=== PATIENT | female | born 1950 | race Caucasian/White ===

== ENCOUNTER 2017-09-04 12:44 | Emergency (ER) | payer MEDICARE ==
[~2017-09-04] VITALS: Ht 172.7 cm; Wt 104.3 kg
== END 2017-09-04 16:46 | disposition left against medical advice (07) ==
LOC: ER 12:44
DX: R09.89 Other specified symptoms and signs involving the circulatory and respiratory systems (principal)

== ENCOUNTER 2020-04-26 20:57 | Inpatient (IN) | payer MEDICARE, OTHER ==
[~2020-04-26] VITALS: Ht 172.7 cm; Wt 98.2 kg
--- NOTE | 2020-04-26 21:12 | NUR ---
CODE STEMI ACTIVATED AT THIS TIME.
--- NOTE | 2020-04-26 21:20 | NUR ---
PATIENT IN ROOM, CONNECTED TO [employer] AND ALL APPROPIATE MONITORING EQUIPMENT, 02 PLACED ON PATIENT, GROIN AREAS BEING SHAVED AT THIS MOMENT
[2020-04-26] MEDS ORDERED: ASPIRIN 81 MG CHEW TAB ONE (21:21)
--- OUTSIDE RECORDS SUMMARY | 2020-04-26 21:22 | XMS REPORT | Clinical Summary ---
Author Author [facility] Organization [facility] Address Unknown Phone Unavailable Care Team Providers Care Tafe Registrar Name Role Phone PCP Unavailable Allergies Comments Active Allergy Reactions Severity Noted Date Propoxyphene 07/31/2013 N-Acetaminophen Penicillins Rash 07/31/2013 Oxycodone-Acetaminophen Hallucination 03/10/2014 s Oxycodone Hallucination Medium 09/26/2013 [facility] Medications End Date Status Medication Sig Dispensed Refills Start Date Active blood glucose meter Use as 1 Kit 0 (PRECISION XTRA directed.. 4 GLUCOMETER)Indications: DM (diabetes mellitus) Active lancets 28 Use 2 times a 1 Box 3 gaugeIndications: DM day 4 (diabetes mellitus) Active aspirin (ASPIRIN) 81 mg Chew and 90 tablet 4 chewable swallow 1 4 tabletIndications: CAD tablet by (Coronary Artery Disease) mouth daily. of Artery Bypass Graft Active blood glucose (PRECISION Patient is on 100 Each 3 XTRA TEST STRIPS) test insulin 3 4 stripsIndications: DM times daily, (diabetes mellitus) need to check blood sugar before each meal. Active ammonium lactate (AL12) Apply to 225 g 3 12 % lotionIndications: affected area 4 Xerosis cutis 2 times daily. Active blood glucose Use as 1 Kit 0 meterIndications: DM directed.. 5 (diabetes mellitus), Unspecified hypothyroidism Active blood glucose test Check blood 6 Box 5 01 stripsIndications: sugar 3 times 5 Uncontrolled diabetes per day. mellitus Active INSULIN SYRINGE 1mL Use to inject 300 Each 5 07/20 30GX5/16" medication 2 5 syringe-needleIndications times daily. : Uncontrolled diabetes Use a new mellitus syringe each time. Active clotrimazole (LOTRIMIN) 1 Apply 1 to 2 30 mL 3 % external drops to 5 solutionIndications: affected Dermatophytosis of nail nails 2 times a day. Use a nail file to keep nails thin. Active traMADol (ULTRAM) 50 mg Take 1 tablet 20 tablet 0 tabletIndications: Fall by mouth 5 in (into) shower or empty every 6 hours bathtub, subsequent as needed for encounter Pain. Active albuterol (PROVENTIL HFA) Inhale 2 6.7 g 1 90 mcg/actuation inhaler Puffs by 6 mouth 4 times daily as needed for Wheezing. Active BRILINTA 90 mg Take 1 tablet 180 tablet 3 tabletIndications: CAD by mouth 2 6 S/P percutaneous coronary times daily. angioplasty Active metFORMIN (GLUCOPHAGE) Take 2 360 tablet 5 500 mg tabletIndications: tablets by 6 Other specified mouth 2 times hypothyroidism daily (with meals). Active ketoconazole (NIZORAL) 2 Apply to 30 g 0 0 % topical affected area 6 creamIndications: Moni daily. infection Active blood glucose Use as 1 Kit 0 meterIndications: directed.. 6 Diabetes mellitus, insulin dependent (IDDM), controlled Active blood glucose test 3 times 100 Each 3 01 stripsIndications: daily. 6 Diabetes mellitus, insulin dependent (IDDM), controlled Active nitroGLYCERIN (NITROSTAT) Dissolve 1 100 tablet 1 0.4 mg sublingual tablet under 6 tabletIndications: the tongue Pericardial pain, every 5 Uncontrolled diabetes minutes as mellitus needed, up to 3 times. If chest pain persists, call 911. Active FLUoxetine (PROZAC) 20 mg Take 1 90 capsule 1 capsuleIndications: capsule by 6 Neuropathy mouth daily. Active insulin NPH (NOVOLIN N, Inject 20 40 mL 1 HUMULIN N) 100 unit/mL Units under 6 injectionIndications: the skin 2 Diabetes mellitus type 2, times daily insulin dependent (before meals). Active INSULIN SYRINGE 0.5mL Use to inject 1 Box 1 30GX5/16" (MONOJECT medication 2 6 ULTRACOMFORT INSULIN SYR times daily. 0.5ML 30GX5/16") Use a new syringe-needleIndications syringe each : Diabetes mellitus type time. 2, insulin dependent Active insulin REGULAR (NOVOLIN Inject 8 20 mL 1 1 R, HUMULIN R) 100 unit/mL Units under 6 injectionIndications: the skin 3 Diabetes mellitus type 2, times daily. insulin dependent Active INSULIN SYRINGE 0.5mL Use to inject 1 Box 1 30GX5/16" (ULTRA COMFORT) medication 3 6 syringe-needleIndications times daily. : Diabetes mellitus type Use a new 2, insulin dependent syringe each time. Active loratadine (CLARITIN) 10 Take 1 tablet 90 tablet 1 mg tabletIndications: by mouth 6 Other acute sinusitis daily. Active mometasone (NASONEX) 50 2 Sprays by 17 g 1 mcg/actuation nasal each nostril 6 sprayIndications: Other route daily. acute sinusitis Active blood glucose Use as 1 Kit 0 meterIndications: directed.. 6 Diabetes mellitus type 2, insulin dependent Active lancetsIndications: by 100 Each 1 Diabetes mellitus type 2, MISCELLANEOUS 6 insulin dependent route 2 times daily. Active blood glucose test 2 times daily 100 Each 3 08/19 stripsIndications: to test blood 6 Diabetes mellitus type 2, sugar. insulin dependent Active gabapentin (NEURONTIN) Take 1 90 capsule 1 300 mg capsule by 6 capsuleIndications: mouth 3 times Precordial pain daily. Active isosorbide mononitrate Take 1 tablet 30 tablet 3 1 (IMDUR) 30 mg extended by mouth 6 release every tabletIndications: S/P morning. CABG x 4, CAD S/P percutaneous coronary angioplasty Active atorvastatin (LIPITOR) 80 Take 1 tablet 90 tablet 3 mg tabletIndications: CAD by mouth at 7 S/P percutaneous coronary bedtime angioplasty, Diabetes nightly. type 2, uncontrolled Active levothyroxine (SYNTHROID) Take 1 tablet 30 tablet 0 150 mcg by mouth 7 tabletIndications: every morning Acquired hypothyroidism (before breakfast) Pt needs appointment with PCP for future refills. Due for routine lab monitoring. Active metoprolol succinate Take 1 tablet 90 tablet 3 (TOPROL XL) 25 mg by mouth 7 extended release daily. tabletIndications: Essential hypertension Active Problems Problem Noted Date CHRISTOS (obstructive sleep apnea) 09/15/2016 Chest pain 09/14/2016 Precordial pain 03/08/2016 Left groin pain 02/17/2016 Type 2 diabetes mellitus, uncontrolled 02/17/2016 Hypotension due to drugs 02/17/2016 Hypothyroidism (acquired) 02/17/2016 Vitamin D deficiency 02/17/2016 Decreased pedal pulses 01/16/2016 Moni infection - axilla 01/16/2016 Diabetes mellitus, insulin dependent (IDDM), controll ed 01/16/2016 S/P CABG x 4 - 2004 ( long view) 01/14/2016 CAD S/P percutaneous coronary angioplasty 4 stents - last in 12/201401/14/2016 H/O carotid endarterectomy- 200401/14/2016 Iliac bone pain - left iliac crest lesion of 4 cm Fall in (into) shower or empty bathtub, subsequent en counter 08/11/2015 Skin lesion 08/26/2014 Angina effort 03/13/2014 Holter monitor, abnormal 10/14/2013 Abnormal stress test 10/14/2013 Carotid artery stenosis 10/14/2013 CAD (coronary artery disease) 08/06/2013 DM (diabetes mellitus) 08/06/2013 Hypothyroidism 08/06/2013 HTN (hypertension) 08/06/2013 HLD (hyperlipidemia) 08/06/2013 Neuropathy 08/06/2013 Depression 08/06/2013 Syncope 07/31/2013 Hypotension Lactic acidosis Poorly controlled diabetes mellitus No contraindication to deep vein thromb osis (DVT) prophylaxis Immunizations Name Administration Dates Next Due Influenza Vaccine 09/08/2014 Pneumoccoccal 04/03/2015 (Deferred: Patie nt Refused), 03/10/2014 (Deferred: Patient already had this imm unization) Family History Medical History Relation Name Comments Heart Brother Hypertension Father Heart Mother Hypertension Mother Relation Name Status Comments Brother Father Father Mother Mother Social History Date Tobacco Use Types Packs/Day Years Used Quit: 04/03/1998 Former Smoker Cigarettes 1 20 Smokeless Tobacco: Never Used Drinks/Week oz/Week Comments Alcohol Use No Sex Assigned at Date Recorded Not on file Industry Job Start Date Occupation Not on file Not on file Not on file Travel End Travel History Travel Start No recent travel history available. Last Filed Vital Signs Not on file Plan of Treatment Health Maintenance Due Date Last Done Comments Colorectal Cancer Scrn 2000 Annual (FIT/FOBT) Age 50 to 75 DM Foot Exam (Yearly) 09/05/2014 09/05/2013 Breast Cancer Scrn 09/25/2014 09/25/2013 (Yearly) IMM Pneumococcal Age 65 2015 and Up DM Retinal Exam (Yearly) 01/15/2017 01/16/2016, 09/05/2013, 09/05/2013 DM HGBA1C (Yearly) 08/19/2017 08/19/2016, 03/10/2016, 12/11/2015, Additional history exists DM Microalbumin Urine 08/19/2017 08/19/2016, Scrn (Yearly) 03/05/2015, 09/05/2013 CORONARY ARTERY DISEASE 09/15/2017 09/15/2016, AGE 18 AND UP 12/11/2015, 12/09/2014, Additional history exists Results Not on fileafter 04/26/2019 Insurance Type Payer Benefit Subscriber ID Effective Phone Address Plan / Dates Group [employer] [facility] xxxxxxxxxx 2016-P [phone] [address] [place] [address] Advance Directives Date Inactivated Comments Code Status Date Activated 09/16/2016 8:35 PM Full Code 09/14/2016 9:53 PM 03/10/2016 7:02 PM Full Code 03/09/2016 10:15 AM 03/14/2014 3:35 PM Full Code 03/13/2014 11:32 AM 03/13/2014 11:32 AM Full Code 03/13/2014 11:26 AM 03/13/2014 11:26 AM Full Code 03/13/2014 11:20 AM
--- OUTSIDE RECORDS SUMMARY | 2020-04-26 21:22 | XMS REPORT | Continuity of Care Document ---
Author Author [facility] t Organization [facility] Address [address] [place] [address] Phone Unavailable Care Team Providers Care Pillowcase Cleaner Name Role Phone Unavailable Unavailable Payers Payer Name Policy Type Policy Number Effective Date Expiration Date S ource Problems Condition Name Condition Details Condition Category Status Onset Date Resolution Date Last Treatment Date Treating Clinician Comments Source CHRISTOS (obstructive sleep apnea) CHRISTOS (obstructive sleep apnea) Disease Active 2016-09-15 00:00:00 [facility] Chest pain Chest pain Disease Active 2016-09-14 00:00:00 [facility] Precordial pain Precordial pain Disease Active 2016-03-08 00:00:00 [facility] Left groin pain Left groin pain Disease Active 2016-02-17 00:00:00 [facility] Type 2 diabetes mellitus, uncontrolled Type 2 diabetes nicolette noe, uncontrolled Disease Active 2016-02-17 00:00:00 [facility] Hypotension due to drugs Hypotension due to drugs Disease Acti ve 2016-02-17 00:00:00 [facility] Hypothyroidism (acquired) Hypothyroidism (acquired) Disease Ac tive 2016-02-17 00:00:00 [facility] Vitamin D deficiency Vitamin D deficiency Disease Active 00:00:00 [facility] Decreased pedal pulses Decreased pedal pulses Disease Active 2016-01-16 00:00:00 [facility] Moni infection - axilla Moni infection - axilla Disease Active 2016-01-16 00:00:00 [facility] Diabetes mellitus, insulin dependent (IDDM), controlle d Diabetes mellitus, insulin dependent (IDDM), controlled Disease Active 2016-01-16 00:00:00 [facility] S/P CABG x 4 - 2004 ( long view) S/P CABG x 4 - 2004 ( long view ) Disease Active 2016-01-14 00:00:00 [facility] CAD S/P percutaneous coronary angioplasty 4 stents - l ast in 12/2014 CAD S/P percutaneous coronary angioplasty 4 stents - last in 12/2014 Disease Active 2016-01-14 00:00:00 [place] H/O carotid endarterectomy- 2005 H/O carotid endarterectomy- 200 5 Disease Active 2016-01-14 00:00:00 [facility] Iliac bone pain - left iliac crest lesion of 4 cm López c bone pain - left iliac crest lesion of 4 cm Disease Active 2015-12-11 00:00:00 [facility] Fall in (into) shower or empty bathtub, subsequent enc ounter Fall in (into) shower or empty bathtub, subsequent encounter Disease Active 2015-08-11 00:00:00 [facility] Skin lesion Skin lesion Disease Active 2014-08-26 00:00:00 [facility] Angina effort Angina effort Disease Active 2014-03-13 00:00:00 [facility] Holter monitor, abnormal Holter monitor, abnormal Disease Acti ve 2013-10-14 00:00:00 [facility] Abnormal stress test Abnormal stress test Disease Active 00:00:00 [facility] Carotid artery stenosis Carotid artery stenosis Disease Active 2013-10-14 00:00:00 [facility] CAD (coronary artery disease) CAD (coronary artery disease) Disease Active 2013-08-06 00:00:00 [facility] DM (diabetes mellitus) DM (diabetes mellitus) Disease Active 2013-08-06 00:00:00 [facility] Hypothyroidism Hypothyroidism Disease Active 2013-08-06 00:00:00 [facility] HTN (hypertension) HTN (hypertension) Disease Active 2013-08-06 00:00:0 0 [facility] HLD (hyperlipidemia) HLD (hyperlipidemia) Disease Active 00:00:00 [facility] Neuropathy Neuropathy Disease Active 2013-08-06 00:00:00 [facility] Depression Depression Disease Active 2013-08-06 00:00:00 [facility] Syncope Syncope Disease Active 2013-07-31 00:00:00 [facility] Hypotension Hypotension Disease Active [facility] Lactic acidosis Lactic acidosis Disease Active [facility] Poorly controlled diabetes mellitus Poorly controlled diabetes m ellitus Disease Active [facility] No contraindication to deep vein thrombosis (DVT) prop hylaxis No contraindication to deep vein thrombosis (DVT) prophylaxis Disease Active [facility] Allergies, Adverse Reactions, Alerts Allergy Name Allergy Type Status Severity Reaction(s) Onset Date Inacti ve Date Treating Clinician Comments Source oxycodone DA Active [place] 2018-03-20 00:00:00 [facility] acetaminophen DA Active [place] 2018-03-20 00:00:00 [facility] penicillin G DA Active [place] 2018-03-20 00:00:00 [facility] Oxycodone-Acetaminophen Propensity to adverse reactions to drug Act benigno Hallucinations 2014-03-10 00:00:00 [facility] Oxycodone [id number] Propensity to adverse reactions to drug Active Hallucinations 2013-09-26 00:00:00 [facility] Propoxyphene N-Acetaminophen Propensity to adverse reactions to drug Active 2013-07-31 00:00:00 [facility] Penicillins Propensity to adverse reactions to drug Active Rash 2013-07-31 00:00:00 [facility] Family History Family Member Diagnosis Comments Start Date Stop Date Source Natural brother [facility] Natural father Hypertension [facility] Natural mother [facility] Natural mother Hypertension [facility] Social History Social Habit Start Date Stop Date Quantity Comments Source Sex Assigned At [facility] Cigarettes smoked current (pack per day) - Reported 00:00:00 2016-09-15 00:00:00 [facility] Cigarette pack-years 2016-09-15 00:00:00 2016-09-15 00:00:00 [facility] Alcohol intake 2016-09-15 00:00:00 2016-09-15 00:00:00 Current non-drinker of alcohol (finding) [facility] History of tobacco use 1998-04-03 00:00:00 Current smoker [facility] Smoking Status Start Date Stop Date Source Former smoker 2016-09-15 00:00:00 2016-09-15 00:00:00 [facility] Medications Ordered Medication Name Filled Medication Name Start Date Stop Da te Current Medication? Ordering Clinician Indication Dosage Frequency Signature (SIG) Comments Components Source atorvastatin (LIPITOR) 80 mg tablet 2016-12-13 00:00:00 Yes Diabetes type 2, uncontrolled 80mg Take 1 tablet by mouth at bedtime nightly. [facility] levothyroxine (SYNTHROID) 150 mcg tablet 2016-12-13 00:00:00 Yes Acquired hypothyroidism 150ug QD Take 1 tablet by justino th every morning (before breakfast) Pt needs appointment with PCP for future refills. Due for routine lab monitoring. [facility] metoprolol succinate (TOPROL XL) 25 mg extended release tabl et 2016-12-13 00:00:00 Yes Essential hypertension 25mg QD Take 1 t ablet by mouth daily. [facility] gabapentin (NEURONTIN) 300 mg capsule 2016-09-16 00:00:00 Yes Precordial pain 300mg Take 1 capsule by mouth 3 times daily. [facility] isosorbide mononitrate (IMDUR) 30 mg extended release tablet 2016-09-16 00:00:00 Yes CAD S/P percutaneous coronary angioplast y 30mg Take 1 tablet by mouth every morning. [facility] insulin NPH (NOVOLIN N, HUMULIN N) 100 unit/mL injection 2016-08-19 00:00:00 Yes Diabetes mellitus type 2, insulin dependent 20U Q.5D Inject 20 Units under the skin 2 times daily (before meals). [facility] INSULIN SYRINGE 0.5mL 30GX5/16" (MONOJEC T ULTRACOMFORT INSULIN SYR 0.5ML 30GX5/16") syringe-needle 2016-08-19 00:00:00 Yes Diabetes mellitus type 2, insulin dependent Q.5D Use to inject medic ation 2 times daily. Use a new syringe each time. [facility] insulin REGULAR (NOVOLIN R, HUMULIN R) 100 unit/mL injection 2016-08-19 00:00:00 Yes Diabetes mellitus type 2, insulin depend ent 8U Inject 8 Units under the skin 3 times daily. [facility] INSULIN SYRINGE 0.5mL 30GX5/16" (ULTRA COMFORT) syringe-need le 2016-08-19 00:00:00 Yes Diabetes mellitus type 2, insulin depend ent Use to inject medication 3 times daily. Use a new syringe each time. [facility] loratadine (CLARITIN) 10 mg tablet 2016-08-19 00:00:00 Yes Other acute sinusitis 10mg QD Take 1 tablet by mouth daily. [facility] mometasone (NASONEX) 50 mcg/actuation nasal spray 2016-08-19 00:00:00 Yes Other acute sinusitis 2{spray} QD 2 Sprays by each nostril route daily . [facility] blood glucose meter 2016-08-19 00:00:00 Yes Diabetes mellitus type 2, insulin dependent Use as directed.. [facility] lancets 2016-08-19 00:00:00 Yes Diabetes mellitus type 2, insulin dependent Q.5D by MISCELLANEOUS route 2 times daily. [facility] blood glucose test strips 2016-08-19 00:00:00 Yes Diabetes mellitus type 2, insulin dependent Q.5D 2 times daily to test blood sugar. [facility] FLUoxetine (PROZAC) 20 mg capsule 2016-08-17 00:00:00 Ye s Neuropathy 20mg QD Take 1 capsule by mouth daily. [facility] nitroGLYCERIN (NITROSTAT) 0.4 mg sublingual tablet 2016-04 00:00:00 Yes Uncontrolled diabetes mellitus D issolve 1 tablet under the tongue every 5 minutes as needed, up to 3 times. If chest pain persists, call 911. [facility] ketoconazole (NIZORAL) 2 % topical cream 2016-01-14 00:00:00 Yes Moni infection QD Apply to affected area daily. [facility] blood glucose meter 2016-01-14 00:00:00 Yes Diabetes mellitus, insulin dependent (IDDM), controlled Use as directed.. [facility] blood glucose test strips 2016-01-14 00:00:00 Yes Diabetes mellitus, insulin dependent (IDDM), controlled 3 times daily. [facility] albuterol (PROVENTIL HFA) 90 mcg/actuation inhaler 2015-11 00:00:00 Yes 2{puff} Inhale 2 Puffs by mouth 4 times daily as needed for Wheezing. [facility] BRILINTA 90 mg tablet 2015-12-11 00:00:00 Yes CAD S/P percutaneous coronary angioplasty 90mg Q.5D Take 1 tablet by mouth 2 times daily. [facility] metFORMIN (GLUCOPHAGE) 500 mg tablet 2015-12-11 00:00:00 Yes Other specified hypothyroidism 1000mg Take 2 tablets by mouth 2 times daily (with meals). [facility] traMADol (ULTRAM) 50 mg tablet 2015-08-11 00:00:00 Yes Fall in (into) shower or empty bathtub, subsequent encounter 50mg Take 1 tablet by mouth every 6 hours as needed for Pain. [facility] INSULIN SYRINGE 1mL 30GX5/16" syringe-needle 2015-08-10 00:0 0:00 Yes Uncontrolled diabetes mellitus Q.5D Use to in ject medication 2 times daily. Use a new syringe each time. [facility] clotrimazole (LOTRIMIN) 1 % external solution 2015-08-10 00: 00:00 Yes Dermatophytosis of nail Apply 1 to 2 portia ps to affected nails 2 times a day. Use a nail file to keep nails thin. [facility] blood glucose meter 2015-03-05 00:00:00 Yes Unspecified hypothyroidism Use as directed.. [facility] blood glucose test strips 2015-03-05 00:00:00 Yes Uncontrolled diabetes mellitus Check blood sugar 3 times per day. [facility] ammonium lactate (AL12) 12 % lotion 2014-07-09 00:00:00 Yes Xerosis cutis Q.5D Apply to affected area 2 times daily. [facility] blood glucose (PRECISION XTRA TEST STRIPS) test strips 2014-04-23 00:00:00 Yes DM (diabetes mellitus) Patisurya nt is on insulin 3 times daily, need to check blood sugar before each meal. [facility] aspirin (ASPIRIN) 81 mg chewable tablet 2014-03-14 00:00:00 Yes CAD (Coronary Artery Disease) of Artery Bypass Graft 81mg QD Chew and swallow 1 tablet by mouth daily. [facility] blood glucose meter (PRECISION XTRA GLUCOMETER) 2014-01-16 0 0:00:00 Yes DM (diabetes mellitus) Use as directed.. [facility] lancets 28 gauge 2014-01-16 00:00:00 Yes DM (diab etes mellitus) Use 2 times a day [facility] Immunizations Ordered Immunization Name Filled Immunization Name Date Status Comments Source Influenza Vaccine 2014-09-08 00:00:00 Completed [facility] Procedures This patient has no known procedures. Plan of Care Planned Activity Planned Date Details Comments Source Future Scheduled Test 2017-09-15 00:00:00 CORONARY ARTERY DI SEASE AGE 18 AND UP [code = CORONARY ARTERY DISEASE AGE 18 AND UP] [facility] Future Scheduled Test 2017-08-19 00:00:00 Hemoglobin A1c alec surement (procedure) [code = 42310507] [facility] Scheduled Test 2017-08-19 00:00:00 Urine screening fo r protein (procedure) [code = 300659328] [facility] Scheduled Test 2017-01-15 00:00:00 DM Retinal Exam (Y early) [code = DM Retinal Exam (Yearly)] [facility] Scheduled Test 2015 00:00:00 IMM Pneumococcal A ge 65 and Up [code = IMM Pneumococcal Age 65 and Up] [facility] Scheduled Test 2014-09-25 00:00:00 Breast Cancer Scrn (Yearly) [code = Breast Cancer Scrn (Yearly)] [facility] Scheduled Test 2014-09-05 00:00:00 DM Foot Exam (Year ly) [code = DM Foot Exam (Yearly)] [facility] Scheduled Test 2000 00:00:00 Screening for sultana gnant neoplasm of colon (procedure) [code = 556241712] [facility] Encounters Start Date/Time End Date/Time Encounter Type Admission Type [facility] Facility Care Department Encounter ID Source 2016-09-16 00:00:00 2016-09-16 00:00:00 Outpatient [facility] [id number] [facility] 2016-09-14 15:38:08 2016-09-14 15:38:08 Emergency [facility] [id number] [facility] Results Test Description Test Time Test Comments Results Result Comments Source B-TYPE NATRIURETIC PEPTIDE 2019-01-08 18:40:00 Test Item B-TYPE NATRIURETIC PEPTIDE (test code = BNP) 190.0 PG/ML 0-100 H BASIC METABOLIC [id number] 18:15:00* Test Item Value Reference Range Interpretation Comments SODIUM (test code = NA) 139 mEq/L 134-147 N POTASSIUM (test code = K) 4.1 mEq/L 3.4-5.0 N CHLORIDE (test code = CL) 108 mEq/L 100-108 N CARBON DIOXIDE (test code = CO2) 26 mEq/L 21-33 N ANION GAP (test code = GAP) 9 0-20 N GLUCOSE (test code = GLU) 129 mg/dL 70-110 H BLOOD UREA NITROGEN (test code = BUN) 12 mg/dL 7-18 N GLOMERULAR FILTRATION RATE (test code = GFR) 71.3 80-90 L Units of measure = ml/min/1.73 m2 CREATININE (test code = CREAT) 0.8 mg/dL 0.6-1.3 N CALCIUM (test code = CA) 9.4 mg/dL 8.0-10.5 N [id number] 18:15:00* Test Item Value Reference Range Interpretation Comments TROPONIN-I (test code = TROPI) < 0.015 ng/mL 0.000-0.045 N Negative: <= 0.045 Positive: >= 0.046 Correlation with serial results, other cardiac markers andclinical findings is necessary to determine the clinicalsignificance of this result. Results using different methodologies should not be comparedto one another as quantitative results may vary by method. CBC W/AUTO [id number] 17:45:00* Test Item Value Reference Range Interpretation Comments WHITE BLOOD CELL (test code = WBC) 9.21 x10 3/uL 4.5-11.0 N RED BLOOD CELL (test code = RBC) 4.47 x10 6/uL 3.54-5.02 N HEMOGLOBIN (test code = HGB) 13.4 g/dL 11.0-15.0 N HEMATOCRIT (test code = HCT) 40.9 % 33.0-45.0 N MEAN CELL VOLUME (test code = MCV) 91.5 fL 81.0-99.0 N MEAN CELL HGB (test code = MCH) 30.0 pg 27.0-33.0 N MEAN CELL HGB CONCETRATION (test code = MCHC) 32.8 g/dL 33.0-37. 0 L RED CELL DISTRIBUTION WIDTH CV (test code = RDW) 13.4 % 11.5- 14.5 N RED CELL DISTRIBUTION WIDTH SD (test code = RDW-SD) 45.8 fL 37 .0-54.0 N PLATELET COUNT (test code = PLT) 247 x10 3/uL 150-400 N MEAN PLATELET VOLUME (test code = MPV) 12.1 fL 7.0-9.0 H NEUTROPHIL % (test code = NT%) 63.5 % 56.0-77.0 N IMMATURE GRANULOCYTE % (test code = IG%) 0.4 % 0.0-2.0 N LYMPHOCYTE % (test code = LY%) 26.3 % 14.0-32.0 N MONOCYTE % (test code = MO%) 6.6 % 4.8-9.0 N EOSINOPHIL % (test code = EO%) 2.3 % 0.3-3.7 N BASOPHIL % (test code = BA%) 0.9 % 0.0-2.0 N NUCLEATED RBC % (test code = NRBC%) 0.0 % 0-0 N NEUTROPHIL # (test code = NT#) 5.85 x10 3/uL 2.0-7.6 N IMMATURE GRANULOCYTE # (test code = IG#) 0.04 x10 3/uL 0.00-0.03 H LYMPHOCYTE # (test code = LY#) 2.42 x10 3/uL 1.0-3.8 N MONOCYTE # (test code = MO#) 0.61 x10 3/uL 0.1-0.8 N EOSINOPHIL # (test code = EO#) 0.21 x10 3/uL 0.0-0.2 H BASOPHIL # (test code = BA#) 0.08 x10 3/uL 0.0-0.2 N NUCLEATED RBC # (test code = NRBC#) 0.00 x10 3/uL 0.0-0.1 N MANUAL DIFF REQUIRED (test code = MDIFF) NO - XR CHEST 2 [id number] 17:19:00 FAX: Aliya Scott MD [phone] [place]: St: REG Name: AKANKSHA GARCIA [facility] : [birth year] 50 Age/S: 68/F [address] [place] [address] Unit #: [id number] Loc: [address] [address] Phys: Aliya Scott MD Acct: [id number] Dis Date: Status: REG ER PHONE #: [phone] Exam Date: 01/08/2019 1716 FAX #: [phone] Reason: SOB EXAMS: CPT CODE: [id number] XR CHEST 2 V 02160 PROCEDURE: CHEST TWO VIEW INDICATION: Shortness of breath. COMPARISON: Portable chest 03/20/2018 FINDINGS: Cardiovascular: Normal cardiac s ilhouette. Atherosclerotic calcifications. Mediastinum: No mediastinal or hilar lymphadenopathy. Lungs: No focal consolidatio n. No parenchymal mass. Pleura: No pleural effusion. No pneumoth orax. Bones: No acute osseous abnormality. Median sternotomy wire s. IMPRESSION: No acute radiographic abnormal ity. SL: [id number] at [id number] Reported and signed by: Mono Cormier M.D. CC: Aliya Scott MD Technologist: RT Amelia(R) Trnscrd Date/Time/By: 01/08/2019 (0308) : By: [email or web address] [facility] Print D/T: S: 01/08/2019 (2625) PAGE 1 Signed Report
--- NOTE | 2020-04-26 21:28 | Emergency Department Note ---
History of Present Illnes History of Present Illness Chief Complaint: Chest Pain History of Present Illness This is a 69 year old female 3 PRESENTS TO THE ER C/O MIDSTERNAL CP RADIATING UNDER LT ARM AND SOB ONSET THIS AFTERNOON AROUND 1730; HX OF MULTIPLE CARDIAC STENTS AND CABG; RESP EVEN/UNLABORED; . Historian: Patient Arrival Mode: Car Onset (how long ago): hour(s) (4) Location: SUBSTERNAL CHEST Quality: PAIN Radiation: Reports extremity (LEFT AXILLA) Severity: moderate Onset quality: sudden Duration (how long): hour(s) (4) Progression: worsening Context: Denies recent illness, Denies recent surgery, Denies trauma/injury Relieving factors: none Exacerbating factors: movement Associated symptoms: Reports chest pain, Reports shortness of breath Treatments prior to arrival: none Past Medical/Family History Physician Review I have reviewed the patient's past medical and family history. Any updates have been documented here. Past Medical History Recent Fever: No Clinical Suspicion of Infectio: No New/Unexplained Change in Ment: No Past Medical History: Hypertension, Diabetes, CAD Other Medical History: depression hyperlipidemia neuropathy Past Surgical History: CABG, PCI Social History Smoking Cessation: Never Smoker Alcohol Use: None Any Illegal Drug Use: No Other Last Tetanus: utd Review of Systems Review of Systems Constitutional: Reports no symptoms EENTM: Reports no symptoms Cardiovascular: Reports no symptoms Respiratory: Reports wheezing Gastrointestinal: Reports as per HPI Genitourinary: Reports no symptoms Musculoskeletal: Reports no symptoms Integumentary: Reports no symptoms Neurological: Reports no symptoms Psychological: Reports no symptoms Endocrine: Reports no symptoms Hematological/Lymphatic: Reports no symptoms Physical Exam Related Data Allergies: Coded Allergies: acetaminophen (Verified Allergy, Unknown, 09/04/17) aspirin (Verified Allergy, Unknown, 09/04/17) oxycodone (Verified Allergy, Unknown, 09/04/17) Uncoded Allergies: PENICILLIN (Allergy, Unknown, 09/04/17) Triage Vital Signs Vital Signs Date Time Temp Pulse Resp B/P (MAP) Pulse Ox O2 Delivery O2 Flow Rate FiO2 04/26/20 21:05 99.2 87 20 167/87 99 Room Air Vital signs reviewed: Yes Physical Exam CONSTITUTIONAL Constitutional: Present well-developed, Present well-nourished, Present distressed (MILD) HENT HENT: Present normocephalic, Present atraumatic, Present oropharynx clear/moist, Present nose normal HENT L/R: Present left ext ear normal, Present right ext ear normal EYES Eyes: Reports PERRL, Reports conjunctivae normal NECK Neck: Present ROM normal PULMONARY Pulmonary: Present effort normal, Present breath sounds normal CARDIOVASCULAR Cardiovascular: Present regular rhythm, Present heart sounds normal, Present capillary refill normal, Present normal rate GASTROINTESTINAL Abdominal: Present soft, Present nontender, Present bowel sounds normal GENITOURINARY Genitourinary: Present exam deferred SKIN Skin: Present warm, Present dry MUSCULOSKELETAL Musculoskeletal: Present ROM normal NEUROLOGICAL Neurological: Present alert, Present oriented x 3, Present no gross motor or sensory deficits PSYCHOLOGICAL Psychological: Present mood/affect normal, Present judgement normal Procedures 12 Lead ECG Interpretation ECG Interpretation : ECG: ECG 1 Clinical Liaison: Interpreted by ED physician Date: Apr 26, 2020 Time: 22:10 Rhythm: sinus rhythm Rate: normal BPM: 89 ST segment flattening: III, aVR, aVF T waves normal: No Q waves: V1, V2, V3 Clinical Impression: abnormal ECG Additional Comments INFERIOR WALL STEMI Assessment & Plan Medical Decision Making [facility] 0 CODE STEMI CALLED Assessment & Plan Final Impression: (1) ST elevation (STEMI) myocardial infarction involving other coronary artery of inferior wall Depart Disposition: ADMITTED (FIELD REPRESENTATIVE/HEALTH EDUCATION) Last Vital Signs Date Time Temp Pulse Resp B/P (MAP) Pulse Ox O2 Delivery O2 Flow Rate FiO2 04/26/20 21:05 99.2 87 20 167/87 99 Room Air Medications in the ED Aspirin 324 mg STK-MED ONCE .ROUTE ; Start 04/26/20 at 21:21; Stop 04/26/20 at 21:15; Status DC ROSA CARR MD Apr 26, 2020 21:28
[2020-04-26] MEDS ORDERED: ASPIRIN 325 MG TAB PO ONE (21:30)
[2020-04-26] MEDS ORDERED: MIDAZOLAM HCL 2 MG/2 ML VIAL ONE ×2 (21:56→22:26)
[2020-04-26] MEDS ORDERED: LIDOCAINE HCL 2% LOCAL 20 ML VIAL ONE (21:56)
[2020-04-26] MEDS ORDERED: HEPARIN SOD/SOD CHLORIDE 2,000 ML ONE (21:56)
[2020-04-26] MEDS ORDERED: HEPARIN SOD (PORCINE) 1000 UNIT/ML 30ML ONE (21:56)
[2020-04-26] MEDS ORDERED: FENTANYL CITRATE/PF 100MCG/2 ML INJ ONE (21:56)
[2020-04-26] MEDS ORDERED: IOPAMIDOL 370 MG/ML 200 ML INFUS..BTL INJ ONE ×2 (21:57→22:39)
[2020-04-26] MEDS ORDERED: SODIUM CHLORIDE 0.9% 1000ML 1,000 ML ONE (21:57)
[2020-04-26] MEDS ORDERED: NITROGLYCERIN/D5W 200 MCG/ML 250 ML ONE (21:57)
--- NOTE | 2020-04-26 21:57 | NUR ---
PT TRANSPORTED TO SENIOR DATA DEVELOPER AT THIS TIME.
[2020-04-26 22:14] LABS: BASOPHILS # (AUTO) 0.1 (0.0-0.1); BASOPHILS % 0.5 % (0.0-1.0); EOSINOPHILS # (AUTO) 0.2 (0.0-0.4); HEMATOCRIT 34.1 % (34.2-44.1); HEMOGLOBIN 10.7 g/dL (12.0-16.0); LYMPHOCYTES # (AUTO) 2.4 (1.0-3.2); LYMPHOCYTES % 26.1 % (18.0-39.1); MEAN CORPUSCULAR HEMOGLOBIN 27.9 pg (28-32); MEAN CORPUSCULAR HGB CONC 31.4 g/dL (31-35); MONOCYTES # (AUTO) 0.8 (0.2-0.8); MONOCYTES % 8.3 % (4.4-11.3); NEUTROPHILS # (AUTO) 5.8 (2.1-6.9); NEUTROPHILS % 62.8 % (38.7-80.0); PLATELET COUNT 294 x10e3/uL (140-360); RED BLOOD COUNT 3.83 x10e6/uL (3.6-5.1); RED CELL DISTRIBUTION WIDTH 16.9 % (11.7-14.4)
--- NOTE | 2020-04-26 22:16 | Diagnostic Imaging Report ---
EXAMINATION: CHEST SINGLE (PORTABLE) INDICATION: ^CODE STEMI; VORB DR CARR 04/26/20 @ 2123 COMPARISON: None FINDINGS: The heart is enlarged. Sternotomy wires. Pulmonary vasculature is mildly distended. CABG changes. Hazy and patchy opacities in the mid and lower lungs. No pneumothorax. IMPRESSION: Cardiomegaly with interstitial edema and layering pleural effusions. Infection not excluded. Signed by: Mono Banda MD on 04/26/2020 10:12 PM
[2020-04-26 22:21] LABS: ALBUMIN 3.7 g/dL (3.5-5.0); ANION GAP 13.6 mmol/L (8-16); CALCIUM 9.9 mg/dL (8.4-10.2); CREATININE, SERUM 0.99 mg/dL (0.57-1.11); POTASSIUM 4.6 mmol/L (3.5-5.1)
[2020-04-26 22:28] LABS: CREATINE KINASE MB 1.3 ng/mL (0-5.0)
[2020-04-26] MEDS ORDERED: MORPHINE SULFATE INJ 4 MG/ML INJ 1ML IV PRN (23:00)
[2020-04-26] MEDS ORDERED: ZOLPIDEM TARTRATE 5 MG TAB PO PRN (23:00)
[2020-04-26] MEDS ORDERED: ONDANSETRON HCL INJ 2MG/ML 2ML 2 MG/ML VIAL IV PRN (23:00)
[2020-04-26] MEDS ORDERED: ACETAMINOPHEN 325 MG TAB PO PRN (23:00)
[2020-04-26] MEDS ORDERED: HYDRALAZINE HCL 20 MG/ML VIAL IV PRN (23:15)
--- OUTSIDE RECORDS SUMMARY | 2020-04-26 23:36 | XMS REPORT | Continuity of Care Document ---
Author Author [facility] t Organization [facility] Address [address] [place] [address] Phone Unavailable Care Team Providers Care Plating Operator Name Role Phone Isabel CARR Attphys Unavailable LYNDA TERESA Admphys Unavailable Payers Payer Name Policy Type Policy Number Effective Date Expiration Date S ource Problems Condition Name Condition Details Condition Category Status Onset Date Resolution Date Last Treatment Date Treating Clinician Comments Source CHRISTOS (obstructive sleep apnea) CHRISTOS (obstructive sleep apnea) Disease Active 2016-09-15 00:00:00 [facility] ealth Chest pain Chest pain Disease Active 2016-09-14 00:00:00 [facility] Precordial pain Precordial pain Disease Active 2016-03-08 00:00:00 [facility] Left groin pain Left groin pain Disease Active 2016-02-17 00:00:00 [facility] Type 2 diabetes mellitus, uncontrolled Type 2 diabetes melli tus, uncontrolled Disease Active 2016-02-17 00:00:00 [facility] Hypotension due to drugs Hypotension due to drugs Disease Acti ve 2016-02-17 00:00:00 [facility] Hypothyroidism (acquired) Hypothyroidism (acquired) Disease Ac tive 2016-02-17 00:00:00 [facility] Vitamin D deficiency Vitamin D deficiency Disease Active 00:00:00 [facility] Decreased pedal pulses Decreased pedal pulses Disease Active 2016-01-16 00:00:00 [employer] Moni infection - axilla Moni infection - axilla Disease Active 2016-01-16 00:00:00 [employer] Diabetes mellitus, insulin dependent (IDDM), controlle d Diabetes mellitus, insulin dependent (IDDM), controlled Disease Active 2016-01-16 00:00:00 [employer] S/P CABG x 4 - 2005 ( long view) S/P CABG x 4 - 2005 ( long view ) Disease Active 2016-01-14 00:00:00 [employer] CAD S/P percutaneous coronary angioplasty 4 stents - l ast in 12/2014 CAD S/P percutaneous coronary angioplasty 4 stents - last in 12/2014 Disease Active 2016-01-14 00:00:00 [facility] maryann H/O carotid endarterectomy- 2005 H/O carotid endarterectomy- 200 5 Disease Active 2016-01-14 00:00:00 [employer] Iliac bone pain - left iliac crest lesion of 4 cm López c bone pain - left iliac crest lesion of 4 cm Disease Active 2015-12-11 00:00:00 [employer] Fall in (into) shower or empty bathtub, subsequent enc ounter Fall in (into) shower or empty bathtub, subsequent encounter Disease Active 2015-08-11 00:00:00 [facility] Skin lesion Skin lesion Disease Active 2014-08-26 00:00:00 [facility] Angina effort Angina effort Disease Active 2014-03-13 00:00:00 [facility] [employer] Holter monitor, abnormal Holter monitor, abnormal Disease Acti ve 2013-10-14 00:00:00 [facility] Abnormal stress test Abnormal stress test Disease Active 00:00:00 [facility] Carotid artery stenosis Carotid artery stenosis Disease Active 2013-10-14 00:00:00 [facility] CAD (coronary artery disease) CAD (coronary artery disease) Disease Active 2013-08-06 00:00:00 [facility] maryann DM (diabetes mellitus) DM (diabetes mellitus) Disease Active 2013-08-06 00:00:00 [facility] Hypothyroidism Hypothyroidism Disease Active 2013-08-06 00:00:00 [facility] HTN (hypertension) HTN (hypertension) Disease Active 2013-08-06 00:00:0 0 [employer] HLD (hyperlipidemia) HLD (hyperlipidemia) Disease Active 00:00:00 [facility] Neuropathy Neuropathy Disease Active 2013-08-06 00:00:00 [facility] Depression Depression Disease Active 2013-08-06 00:00:00 [facility] Syncope Syncope Disease Active 2013-07-31 00:00:00 [facility] Hypotension Hypotension Disease Active [facility] Lactic acidosis Lactic acidosis Disease Active [facility] Poorly controlled diabetes mellitus Poorly controlled diabetes m ellitus Disease Active [facility] No contraindication to deep vein thrombosis (DVT) prop hylaxis No contraindication to deep vein thrombosis (DVT) prophylaxis Disease Active [facility] Allergies, Adverse Reactions, Alerts Allergy Name Allergy Type Status Severity Reaction(s) Onset Date Inacti ve Date Treating Clinician Comments Source oxycodone DA Active IN 2018-03-20 00:00:00 [facility] acetaminophen DA Active IN 2018-03-20 00:00:00 [facility] penicillin G DA Active U 2018-03-20 00:00:00 [facility] Oxycodone-Acetaminophen Propensity to adverse reactions to drug Act benigno Hallucinations 2014-03-10 00:00:00 [facility] Oxycodone Qxi-Vtsxghcjh-Mds Propensity to adverse reactions to drug Active Hallucinations 2013-09-26 00:00:00 [facility] Propoxyphene N-Acetaminophen Propensity to adverse reactions to drug Active 2013-07-31 00:00:00 [facility] Penicillins Propensity to adverse reactions to drug Active Rash 2013-07-31 00:00:00 [facility] Family History Family Member Diagnosis Comments Start Date Stop Date Source Natural brother [facility] alth Natural father Hypertension [facility] mother Hypert[facility] Social History Social Habit Start Date Stop Date Quantity Comments Source Sex Assigned At [facility] Cigarettes smoked current (pack per day) - Reported 00:00:00 2016-09-15 00:00:00 [facility] Cigarette pack-years 2016-09-15 00:00:00 2016-09-15 00:00:00 [facility] Alcohol intake 2016-09-15 00:00:00 2016-09-15 00:00:00 Current non-drinker of alcohol (finding) [facility] History of tobacco use 1998-04-03 00:00:00 Current smoker [facility] Smoking Status Start Date Stop Date Source Former smoker 2016-09-15 00:00:00 2016-09-15 00:00:00 [facility] ealt Medications Ordered Medication Name Filled Medication Name Start Date Stop Da te Current Medication? Ordering Clinician Indication Dosage Frequency Signature (SIG) Comments Components Source atorvastatin (LIPITOR) 80 mg tablet 2016-12-13 00:00:00 Yes Diabetes type 2, uncontrolled 80mg Take 1 tablet by mouth at bedtime nightly. [facility] levothyroxine (SYNTHROID) 150 mcg tablet 2016-12-13 00:00:00 Yes Acquired hypothyroidism 150ug QD Take 1 tablet by justino th every morning (before breakfast) Pt needs appointment with PCP for future refills. Due for routine lab monitoring. [facility] metoprolol succinate (TOPROL XL) 25 mg extended release tabl et 2016-12-13 00:00:00 Yes Essential hypertension 25mg QD Take 1 t ablet by mouth daily. [facility] gabapentin (NEURONTIN) 300 mg capsule 2016-09-16 00:00:00 Yes Precordial pain 300mg Take 1 capsule by mouth 3 times daily. [facility] isosorbide mononitrate (IMDUR) 30 mg extended release tablet 2016-09-16 00:00:00 Yes CAD S/P percutaneous coronary angioplast y 30mg Take 1 tablet by mouth every morning. [facility] insulin NPH (NOVOLIN N, HUMULIN N) 100 unit/mL injection 2016-08-19 00:00:00 Yes Diabetes mellitus type 2, insulin dependent 20U Q.5D Inject 20 Units under the skin 2 times daily (before meals). [facility] INSULIN SYRINGE 0.5mL 30GX5/16" (MONOJEC T ULTRACOMFORT INSULIN SYR 0.5ML 30GX5/16") syringe-needle 2016-08-19 00:00:00 Yes Diabetes mellitus type 2, insulin dependent Q.5D Use to inject medic ation 2 times daily. Use a new syringe each time. [facility] insulin REGULAR (NOVOLIN R, HUMULIN R) 100 unit/mL injection 2016-08-19 00:00:00 Yes Diabetes mellitus type 2, insulin depend ent 8U Inject 8 Units under the skin 3 times daily. [facility] INSULIN SYRINGE 0.5mL 30GX5/16" (ULTRA COMFORT) syringe-need le 2016-08-19 00:00:00 Yes Diabetes mellitus type 2, insulin depend ent Use to inject medication 3 times daily. Use a new syringe each time. [facility] loratadine (CLARITIN) 10 mg tablet 2016-08-19 00:00:00 Yes Other acute sinusitis 10mg QD Take 1 tablet by mouth daily. [facility] mometasone (NASONEX) 50 mcg/actuation nasal spray 2016-08-19 00:00:00 Yes Other acute sinusitis 2{spray} QD 2 Sprays by each nostril route daily . [facility] blood glucose meter 2016-08-19 00:00:00 Yes Diabetes mellitus type 2, insulin dependent Use as directed.. [facility] lancets 2016-08-19 00:00:00 Yes Diabetes mellitus type 2, insulin dependent Q.5D by MISCELLANEOUS route 2 times daily. [facility] blood glucose test strips 2016-08-19 00:00:00 Yes Diabetes mellitus type 2, insulin dependent Q.5D 2 times daily to test blood sugar. [facility] FLUoxetine (PROZAC) 20 mg capsule 2016-08-17 00:00:00 Ye s Neuropathy 20mg QD Take 1 capsule by mouth daily. [facility] nitroGLYCERIN (NITROSTAT) 0.4 mg sublingual tablet 2016-04 00:00:00 Yes Uncontrolled diabetes mellitus D issolve 1 tablet under the tongue every 5 minutes as needed, up to 3 times. If chest pain persists, call 911. [facility] ketoconazole (NIZORAL) 2 % topical cream 2016-01-14 00:00:00 Yes Moni infection QD Apply to affected area daily. [facility] blood glucose meter 2016-01-14 00:00:00 Yes Diabetes mellitus, insulin dependent (IDDM), controlled Use as directed.. [facility] blood glucose test strips 2016-01-14 00:00:00 Yes Diabetes mellitus, insulin dependent (IDDM), controlled 3 times daily. [facility] albuterol (PROVENTIL HFA) 90 mcg/actuation inhaler 2015-11 00:00:00 Yes 2{puff} Inhale 2 Puffs by mouth 4 times daily as needed for Wheezing. [facility] BRILINTA 90 mg tablet 2015-12-11 00:00:00 Yes CAD S/P percutaneous coronary angioplasty 90mg Q.5D Take 1 tablet by mouth 2 times daily. [facility] metFORMIN (GLUCOPHAGE) 500 mg tablet 2015-12-11 00:00:00 Yes Other specified hypothyroidism 1000mg Take 2 tablets by mouth 2 times daily (with meals). [facility] traMADol (ULTRAM) 50 mg tablet 2015-08-11 00:00:00 Yes Fall in (into) shower or empty bathtub, subsequent encounter 50mg Take 1 tablet by mouth every 6 hours as needed for Pain. [facility] INSULIN SYRINGE 1mL 30GX5/16" syringe-needle 2015-08-10 00:0 0:00 Yes Uncontrolled diabetes mellitus Q.5D Use to in ject medication 2 times daily. Use a new syringe each time. [facility] clotrimazole (LOTRIMIN) 1 % external solution 2015-08-10 00: 00:00 Yes Dermatophytosis of nail Apply 1 to 2 portia ps to affected nails 2 times a day. Use a nail file to keep nails thin. [facility] blood glucose meter 2015-03-05 00:00:00 Yes Unspecified hypothyroidism Use as directed.. [facility] blood glucose test strips 2015-03-05 00:00:00 Yes Uncontrolled diabetes mellitus Check blood sugar 3 times per day. [facility] ammonium lactate (AL12) 12 % lotion 2014-07-09 00:00:00 Yes Xerosis cutis Q.5D Apply to affected area 2 times daily. [facility] blood glucose (PRECISION XTRA TEST STRIPS) test strips 2014-04-23 00:00:00 Yes DM (diabetes mellitus) Jim nt is on insulin 3 times daily, need to check blood sugar before each meal. [facility] aspirin (ASPIRIN) 81 mg chewable tablet 2014-03-14 00:00:00 Yes CAD (Coronary Artery Disease) of Artery Bypass Graft 81mg QD Chew and swallow 1 tablet by mouth daily. [facility] blood glucose meter (PRECISION XTRA GLUCOMETER) 2014-01-16 0 0:00:00 Yes DM (diabetes mellitus) Use as directed.. [facility] lancets 28 gauge 2014-01-16 00:00:00 Yes DM (diab etes mellitus) Use 2 times a day [facility] Immunizations Ordered Immunization Name Filled Immunization Name Date Status Comments Source Influenza Vaccine 2014-09-08 00:00:00 Completed [facility] Procedures This patient has no known procedures. Plan of Care Planned Activity Planned Date Details Comments Source Future Scheduled Test 2017-09-15 00:00:00 CORONARY ARTERY DI MATTHEWE AGE 18 AND UP [code = CORONARY ARTERY DISEASE AGE 18 AND UP] [facility] Future Scheduled Test 2017-08-19 00:00:00 Hemoglobin A1c alec surement (procedure) [code = 28483781] [facility] Scheduled Test 2017-08-19 00:00:00 Urine screening fo r protein (procedure) [code = 127168330] [facility] Scheduled Test 2017-01-15 00:00:00 DM Retinal Exam (Y early) [code = DM Retinal Exam (Yearly)] [facility] Scheduled Test 2015 00:00:00 IMM Pneumococcal A ge 65 and Up [code = IMM Pneumococcal Age 65 and Up] [facility] Scheduled Test 2014-09-25 00:00:00 Breast Cancer Scrn (Yearly) [code = Breast Cancer Scrn (Yearly)] [facility] Scheduled Test 2014-09-05 00:00:00 DM Foot Exam (Year ly) [code = DM Foot Exam (Yearly)] [facility] Scheduled Test 2000 00:00:00 Screening for sultana gnant neoplasm of colon (procedure) [code = 931956321] [facility] Encounters Start Date/Time End Date/Time Encounter Type Admission Type Attendi [facility] Facility Care Department Encounter ID Source 2016-09-16 00:00:00 2016-09-16 00:00:00 Outpatient [facility] [id number] [facility] 2016-09-14 15:38:08 2016-09-14 15:38:08 Emergency [facility] [id number] [facility] Results Test Description Test Time Test Comments Results Result Comments Source CHEST SINGLE (PORTABLE) 2020-04-26 22:10:00 [place] [address] Patient Name: AKANKSHA GLEZ MR #: [id number] : 1950 Age/Sex: 69/F Req #: [id number] Adm Physician: Ordered by: ROSA CARR MD Report #: [id number] Location: ER Room/Bed: Procedure: [id number] DX/CHEST SINGLE (PORTABLE) Exam Date: 04/26/20 Exam Time: 2124 REPORT STATUS: Signed EXAMINATION: CHEST SINGLE (PORTABLE) INDICATION: CODE STEMI; VORB DR CARR 04/26/20 @ 2124 COMPARISON: None FINDINGS: The heart is enlarged. Sternotomy wires. Pulmonary vasculature is mildly distended. CABG changes. Hazy and patchy opacities in the mid and lower lungs. No pneumothorax. IMPRESSION: Cardiomegaly with interstitial edema and layering pleural effusions. Infection not excluded. Signed by: Segun Garcia MD on 04/26/2020 10:12 PM Dictated By: SEGUN GARCIA MD 11 Transcribed By: RICKIE on 04/26/202211 COPY TO: ROSA CARR MD B-TYPE NATRIURETIC PEPTIDE 2019-01-08 18:40:00 Test Item B-TYPE NATRIURETIC PEPTIDE (test code = BNP) 190.0 PG/ML 0-100 H BASIC METABOLIC [id number] 18:15:00* Test Item Value Reference Range Interpretation [...] code = CA) 9.4 mg/dL 8.0-10.5 N [id number] 18:15:00* Test Item Value Reference Range Interpretation Comments TROPONIN-I (test code = TROPI) < 0.015 ng/mL 0.000-0.045 N Negative: <= 0.045 Positive: >= 0.046 Correlation with serial results, other cardiac markers andclinical findings is necessary to determine the clinicalsignificance of this result. Results using different methodologies should not be comparedto one another as quantitative results may vary by method. CBC W/AUTO [id number] 17:45:00* Test Item Value Reference Range Interpretation [...] = MDIFF) NO - XR CHEST 2 [id number] 17:19:00 FAX: Aliya Scott MD [phone] [place]: St: REG Name: AKANKSHA GARCIA [facility] : 08/[birth year] Age/S: 68/F [address] [place] [address] Unit #: [id number] Loc: [address] [address] Phys: Aliya Scott MD Acct: [id number] Dis Date: Status: REG ER PHONE #: [phone] Exam Date: 01/08/2019 1716 FAX #: [phone] Reason: SOB EXAMS: CPT CODE: [id number] XR CHEST 2 V 63245 PROCEDURE: CHEST TWO VIEW INDICATION: Shortness of breath. COMPARISON: Portable chest 03/20/2018 FINDINGS: Cardiovascular: Normal cardiac s ilhouette. Atherosclerotic calcifications. Mediastinum: No mediastinal or hilar lymphadenopathy. Lungs: No focal consolidatio n. No parenchymal mass. Pleura: No pleural effusion. No pneumoth orax. Bones: No acute osseous abnormality. Median sternotomy wire s. IMPRESSION: No acute radiographic abnormal ity. SL: [id number] at 6828 Reported and signed by: Segun Cormier M.D. CC: Aliya Scott MD Technologist: RT Amelia(Sofia) Trnscrd Date/Time/By: 01/08/2019 (3945) : By: [email or web address] Orig Print D/T: S: 01/08/2019 (8198) PAGE 1 Signed Report
--- OUTSIDE RECORDS SUMMARY | 2020-04-26 23:36 | XMS REPORT | Clinical Summary ---
Author Author [facility] Organization [facility] Address Unknown Phone Unavailable Care Team Providers Care Livestock Handler Name Role Phone PCP Unavailable Allergies Comments Active Allergy Reactions Severity Noted Date Propoxyphene 07/31/2013 N-Acetaminophen Penicillins Rash 07/31/2013 Oxycodone-Acetaminophen Hallucination 03/10/2014 s Oxycodone Hallucination Medium 09/26/2013 Ewg-Okceudcfd-Lor s Medications End Date Status Medication Sig [...] Address Plan / Dates Group SAPNA RUSSOLAW [facility] xxxxxxxxxx 2016-P [phone] [id number] [place] [address] Advance Directives Date Inactivated Comments Code Status Date Activated 09/16/2016 8:35 PM Full Code 09/14/2016 9:53 PM 03/10/2016 7:02 PM Full Code 03/09/2016 10:15 AM 03/14/2014 3:35 PM Full Code 03/13/2014 11:32 AM 03/13/2014 11:32 AM Full Code 03/13/2014 11:26 AM 03/13/2014 11:26 AM Full Code 03/13/2014 11:20 AM
[2020-04-27] VITALS (9 sets, daily range): BP systolic 107–150; BP diastolic 54–86
--- NOTE | 2020-04-27 05:06 | Consultation ---
DATE OF CONSULTATION: Cardiology Consultation CHIEF COMPLAINT: Chest pain. HISTORY OF PRESENT ILLNESS: The patient is a 69-year-old, who came to the emergency room with intermittent chest pain for several hours, relieved by sublingual nitroglycerin. The patient has had a previous coronary artery bypass grafting and a multiple stents were placed after the bypass surgery including a stent in the subclavian artery. PAST MEDICAL HISTORY: Significant for; 1. Coronary artery disease. 2. Diabetes mellitus. 3. Hypertension. 4. Previous coronary artery bypass grafting. 5. Previous percutaneous coronary intervention. SOCIAL HISTORY: The patient does not smoke and does not drink. FAMILY HISTORY: There is a known family history of coronary artery disease. PHYSICAL EXAMINATION: GENERAL: The patient is a well-developed and well-nourished female, in no obvious distress. VITAL SIGNS: Included a temperature of 99.2, pulse was 87, blood pressure was 160/80. HEAD, EARS, EYES, NOSE, AND THROAT: The patient's cranium was normocephalic and atraumatic. Extraocular muscles were intact. Sclerae were anicteric. Pupils were equal, round, and reactive to light. There was no pallor or cyanosis of the oral mucosa. There was no erythema or edema of the throat. NECK: Supple. No jugular venous distention. CHEST: Clear to auscultation and percussion. CARDIAC: Demonstrated normal S1 and S2 with a short 2/6 systolic murmur. ABDOMEN: Demonstrated good bowel sounds. No tenderness and no masses. EXTREMITIES: There is no clubbing, no cyanosis, and no edema. NEUROLOGIC: The patient was alert and oriented x3. Cranial nerves II through XII were intact. Motor strength was +5/+5 in all limbs. DIAGNOSTIC DATA: The patient's EKG demonstrated normal sinus rhythm with some chronic ST depressions. IMPRESSION: The patient is a 69-year-old with a history of previous bypass and coronary stents, who presented to the emergency room with chest pain. The emergency room, felt that the patient was having myocardial infarction and the cardiac cathode ray tube assembler was called. Cardiac catheterization demonstrated a patent left internal mammary artery graft to the left anterior descending artery, the patent saphenous vein graft to the right coronary artery and an occluded saphenous vein graft to the circumflex artery. After the catheterization, the decision was made to treat the patient medically for coronary artery disease. There was no evidence of acute myocardial infarction on the catheterization. MD FRANKY Goodwin/RENITA /[id number]
--- NOTE | 2020-04-27 05:56 | Operative Report ---
DATE OF PROCEDURE: 04/26/2020 SURGEON: Trae Morse MD PREOPERATIVE INDICATIONS: 1. Acute coronary syndrome. 2. Coronary artery disease. POSTOPERATIVE DIAGNOSES: 1. Acute coronary syndrome. 2. Coronary artery disease. PROCEDURE: Left heart catheterization with grafts. COMPLICATIONS: None. ANESTHESIA: Conscious sedation. TECHNIQUE: The right groin was draped and prepped in the usual fashion. The area was anesthetized with lidocaine. Standard Seldinger technique was used to place a 6-Nepalese sheath into the right femoral artery without difficulty. A JL4 catheter was used to selectively engage the left coronary artery. A 3DRC catheter was used to selectively engage the right coronary artery and the saphenous vein graft to the right coronary artery. The internal mammary artery catheter was used to perform a selectively engage left internal mammary artery graft to the left anterior descending artery. A pigtail catheter was used to perform a left ventriculogram and perform an aortogram. The Mynx device was used for closure. There were no complications. RESULTS: As follows: 1. Diffusely diseased left main trunk. 2. The left anterior descending artery was 100% occluded very proximally immediately after the origin of a high diagonal branch. 3. The AV circumflex artery was 100% occluded right at its origin. 4. There was a large dominant right coronary artery, which had diffuse 90% stenosis in its proximal, middle thirds at the junction of the middle and distal thirds. The artery was 100% occluded. 5. The saphenous vein graft to the right coronary artery was widely patent. 6. The saphenous vein graft to the obtuse marginal branch of the circumflex artery was 100% occluded. 7. The left internal mammary artery graft to the left anterior descending artery was widely patent. A left ventriculogram demonstrated some hypokinesis of the apex with overall well-preserved left ventricular function and an ejection fraction of 50%. 8. Aortogram demonstrated no dissection and no aneurysm. CONCLUSION: The patient has left internal mammary artery graft to the left anterior descending artery is widely patent and the saphenous vein graft to the right coronary artery is widely patent. 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 It is my recommendation that the patient be treated medically for her angina and coronary artery disease. MD FRANKY Goodwin/JULIANNEL /[id number]
[2020-04-27] MEDS ORDERED: METOPROLOL TARTRATE 25 MG TAB PO SCH (09:00)
[2020-04-27] MEDS ORDERED: RANOLAZINE 500 MG TABSR PO SCH (09:00)
[2020-04-27] MEDS ORDERED: CLOPIDOGREL BISULFATE 75 MG TAB PO SCH (09:00)
[2020-04-27] MEDS ORDERED: LISINOPRIL 10 MG TAB PO SCH (09:00)
[2020-04-27] MEDS ORDERED: ASPIRIN 325 MG TAB PO SCH (09:00)
[2020-04-27] MEDS ORDERED: INSULIN LISPRO 100 UNIT/1 ML 3ML VIAL SQ SCH (11:30)
[2020-04-27] MEDS ORDERED: RANEXA500 MG PO (13:15)
[2020-04-27] MEDS ORDERED: ASPIRIN325 MG PO (13:15)
[2020-04-27] MEDS ORDERED: LISINOPRIL10 MG PO (13:15)
[2020-04-27] MEDS ORDERED: LOPRESSOR25 MG PO (13:15)
[2020-04-27] MEDS ORDERED: PLAVIX75 MG PO (13:15)
--- NOTE | 2020-04-27 13:19 | Consultation ---
DATE OF CONSULTATION: Pulmonary Critical Care Consultation CHIEF COMPLAINT: Chest pain and cardiac illness along with abnormal chest x-ray. HISTORY OF PRESENT ILLNESS: The patient is a 69-year-old woman. She has an extensive cardiac history. She has had a prior coronary artery bypass grafting as well as prior stents. The patient also has history of COVID-19 infection last month. She had shortness of breath and some cough at the time. She also had diarrhea, but never had a fever. She had a positive test as an outpatient, but never required hospitalization. She has been asymptomatic for the past several weeks. Last night, she developed some chest pain. She had to take several sublingual nitroglycerin. She came to the emergency department and required an emergent catheterization. She had a patent saphenous vein graft as well as a patent BRICEÑO. She had an occluded graft to her circumflex. That was not amenable to percutaneous stent. Medical management was recommended. This morning, the patient has some shortness of breath, but is not having chest pain. She has no fevers. PAST SURGICAL HISTORY: 1. Status post coronary artery bypass grafting. 2. Status post subclavian stent. 3. Status post coronary artery stent. PAST MEDICAL HISTORY: 1. Diabetes. 2. Hypertension. 3. Coronary artery disease. SOCIAL HISTORY: The patient quit smoking many years ago. She is not a drinker. FAMILY HISTORY: Family history is noncontributory. REVIEW OF SYSTEMS: No fever. No headache. She did have chest pain as noted above. There is some mild dyspnea. She has no abdominal pain. She has no nausea or vomiting. She has no leg edema. PHYSICAL EXAMINATION: VITAL SIGNS: The patient is afebrile. The blood pressure is 107/52 and pulse is 80. HEENT: Shows no facial swelling or erythema. The oropharynx is normal. LYMPHATIC: Shows no submandibular, cervical, or supraclavicular adenopathy. CARDIAC: Reveals regular rate and rhythm with normal S1 and S2. LUNGS: Auscultation of lungs reveals rhonchorous breath sounds bilaterally. There is no wheezing. ABDOMEN: Soft and nontender. There is no rebound or guarding. EXTREMITIES: Shows no leg edema or calf tenderness. There is no cyanosis or clubbing. SKIN: Shows no rashes. NEUROLOGICAL: Shows no focal abnormalities. LABORATORY DATA: BUN, creatinine, and electrolytes within normal limits. The blood sugar is 280. Hemoglobin is 10.7 and white blood cell count is 9.1. The platelet count is 284. RADIOGRAPHIC DATA: Chest x-ray shows some cardiomegaly and mild interstitial edema. IMPRESSION: 1. Resolving COVID-19 and viral pneumonia. 2. Myocardial infarction. 3. Severe coronary artery disease. 4. [id number]-[id number] systolic congestive heart failure. PLAN: 1. Continue current cardiac management. 2. Transfer out of intensive care unit. 3. The patient does not require any antibiotics or specific therapy for her prior COVID or pulmonary problems at this time. Cy Morse MD [facility]/JULIANNEL /[id number]
[2020-04-27] MEDS ORDERED: ATORVASTATIN CA20 MG PO ×2 (16:06→16:13)
[2020-04-27] MEDS ORDERED: LIPITOR10 MG PO (16:20)
--- NOTE | 2020-04-27 16:34 | NUR ---
Patient left against medical advice. While this telegraphic typewriter operator was preparing paperwork for discharge to home patient walked into hallway and announced she had to leave. Explained to patient that the paperwork was taking a little more time than normal and that this telegraphic typewriter operator would be with her momentarily. Patient stated, "I have to go and I told you that" and continued to walk out of door. Patient approached by charge nurse and patient would not stop. Patient asked to stop to sign ama papers and have IV removed and patient refused. Patient appeared to have all belongings in her possession.
[2020-04-27] MEDS ORDERED: ATORVASTATIN 20 MG TAB PO SCH (21:00)
--- NOTE | 2020-04-27 22:45 | Discharge Summary ---
PRIMARY CARE DOCTOR: Kain Boss MD FINAL DIAGNOSIS: Coronary artery disease. SECONDARY DIAGNOSIS: Diabetes. TUBE TURNER: Dr. Morse, Cardiology. PROCEDURES/STUDIES PERFORMED: Left heart catheterization. HISTORY: Per H and P. HOSPITAL COURSE: Left heart catheterization was performed. It was deemed to not needing intervention. We will continue medical management. Please see H and P for details. CONDITION ON DISCHARGE: Improved. DISCHARGE MEDICATIONS: Please see medication reconciliation form. Yiching MD HEATHER Wilkes/RENITA /[id number] cc: [facility]
--- NOTE | 2020-04-27 23:11 | History and Physical ---
PRIMARY CARE DOCTOR: Kain Boss MD CHIEF COMPLAINT: Chest pain. HISTORY OF PRESENT ILLNESS: This is a 69-year-old woman with known coronary artery disease, status post CABG and also subsequently stent placed. The patient came in with an intermittent chest discomfort for several hours. When the patient came to the emergency room, it was thought that she had ST elevation on the EKG. The patient was emergently taken to the label stamper. It was determined by the watch supervisor that no intervention is indicated and that we should continue medical management. Currently, the patient denies any chest discomfort. No shortness of breath. No nausea, vomiting. PAST MEDICAL AND SURGICAL HISTORY: 1. Coronary artery disease, status post CABG and stent. 2. Diabetes. 3. Hypertension. MEDICATIONS: Please see medication reconciliation form. ALLERGIES: PENICILLIN AND OXYCODONE. FAMILY HISTORY: Hypertension. SOCIAL HISTORY: Quit smoking. REVIEW OF SYSTEMS: A 10-point review of system obtained and nothing else is significant other than what is stated in the HPI. PHYSICAL EXAMINATION: VITAL SIGNS: Temperature 98.3, pulse 76, respiratory rate 16, blood pressure 107/52. GENERAL: No acute distress. SKIN: No rash. HEENT: Anicteric. Oropharynx is clear. LUNGS: Clear. HEART: Regular rate and rhythm. Normal S1, S2. GI: Abdomen is soft, nondistended. NEUROLOGIC: Alert and oriented x3. Cranial nerves 2 through 12 grossly intact. PSYCHIATRIC: No hallucination. MUSCULOSKELETAL: Painless range of motion. LABORATORY DATA: White count 9, hemoglobin 10.7, platelet count 294, creatinine 0.99. ASSESSMENT AND PLAN: 1. Chest pain. Left heart catheterization was done, which showed a patent left internal mammary artery graft to the left anterior descending artery, also shows patent saphenous vein graft to the RCA and an occluded saphenous vein graft to the circumflex. We will continue to treat her medically. The patient's aspirin was increased from a baby aspirin to a full dose aspirin. Her carvedilol was switched to metoprolol and Ranexa was added. The patient will also continue her Plavix and Lipitor. 2. Diabetes. The patient may restart her metformin 48 hours after her left heart catheterization. 3. Disposition. Discussed with Dr. Trae Morse. The patient may be discharged home today. I have updated her primary care doctor as well. Yiching MD CHARLI Wilkes /[id number] cc: [facility]
--- NOTE | 2020-04-28 08:43 | NUR ---
COVID-19 came back positive after the patient was discharged. I called the patient at home and left her a voicemail to inform her and also to ask her to self quarantine for 10 days per [facility] althea.
--- NOTE | 2020-04-28 12:13 | NUR ---
phone number on file is incorrect, I got a hold of the patient at [phone], I informed her about the positive covid test and she understands she needs to self isolate for 10 days.
== END 2020-04-27 16:45 | disposition left against medical advice (07) | DRG 280 ==
LOC: ER 21:07 → ERHOLD 23:32 → ICU 23:38
PROVIDERS: ADMIT Internal Medicine; ATTEND Internal Medicine
PROC: 4A023N7 Measurement of Cardiac Sampling and Pressure, Left Heart, Percutaneous Approach (ICD-10-PCS; principal; 2020-04-26)
PROC: B2111ZZ Fluoroscopy of Multiple Coronary Arteries using Low Osmolar Contrast (ICD-10-PCS; 2020-04-26)
PROC: B2131ZZ Fluoroscopy of Multiple Coronary Artery Bypass Grafts using Low Osmolar Contrast (ICD-10-PCS; 2020-04-26)
PROC: B2181ZZ Fluoroscopy of Left Internal Mammary Bypass Graft using Low Osmolar Contrast (ICD-10-PCS; 2020-04-26)
DX: I21.4 Non-ST elevation (NSTEMI) myocardial infarction (principal); U07.1 COVID-19; J12.89 Other viral pneumonia; I50.23 Acute on chronic systolic (congestive) heart failure; I25.710 Atherosclerosis of autologous vein coronary artery bypass graft(s) with unstable angina pectoris; E11.9 Type 2 diabetes mellitus without complications; Z95.1 Presence of aortocoronary bypass graft; Z88.0 Allergy status to penicillin; I10 Essential (primary) hypertension; I11.0 Hypertensive heart disease with heart failure
CPT/HCPCS: 36200; 36415; 71045; 80053; 82550; 82553; 82948; 84484; 85025; 93005; 93459; 94660; 99152; 99153; 99284; C1760; C1769; J1644; J2001; J2250; J3010; J7030; Q9967; U0002